=== PATIENT | female | born 1990 | race Caucasian/White ===

== ENCOUNTER 2018-12-23 14:48 | Emergency (ER) | payer BC, MEDICAID ==
[~2018-12-23] VITALS: Ht 165.1 cm; Wt 79.4 kg
--- NOTE | 2018-12-23 14:54 | NUR ---
BILLY LUNDY AT BEDSIDE FOR MSE.
[2018-12-23] MEDS ORDERED: IV NORMAL SALINE 1000 ML BAG IV ONE (15:15)
[2018-12-23 15:28] LABS: BASOPHILS % (AUTO) 0.4 % (0.0-2.0); EOSINOPHILS # (AUTO) 0.1 K/uL (0.0-0.7); EOSINOPHILS % (AUTO) 1.5 % (0.0-7.0); HEMATOCRIT 33.3 % (31.2-41.9); HEMOGLOBIN 11.2 g/dL (10.9-14.3); LYMPHOCYTES # (AUTO) 1.5 K/uL (20.0-40.0); MEAN CORPUSCULAR HEMOGLOBIN 26.9 uug (24.7-32.8); MEAN CORPUSCULAR HGB CONC 34 g/dL (32.3-35.6); MEAN CORPUSCULAR VOLUME 80.2 fL (75.5-95.3); MONOCYTES # (AUTO) 0.5 K/uL (2.0-10.0); MONOCYTES % (AUTO) 6.7 % (0.0-11.0); NEUTROPHILS # (AUTO) 5.5 K/uL (1.8-8.9); NEUTROPHILS % (AUTO) 71.4 % (38.5-71.5); PLATELET COUNT (AUTO) 253 K/uL (179-408); RED BLOOD CELL COUNT(AUTO) 4.16 MIL/uL (3.63-4.92); WHITE BLOOD COUNT (AUTO) 7.7 K/uL (3.8-11.8)
[2018-12-23 15:31] LABS: CREATININE 0.9 mg/dL (0.6-1.3); POTASSIUM 3.7 mmol/L (3.5-5.1)
[2018-12-23 15:37] LABS: BILIRUBIN,DIRECT 0.2 mg/dL (0.0-0.2); BILIRUBIN,TOTAL 0.7 mg/dL (0.2-1.0); TOTAL PROTEIN, SERUM 6.9 g/dL (6.4-8.2)
--- NOTE | 2018-12-23 16:44 | NUR ---
Patient discharged to home in stable conditon. Written and verbal after care instructions given. Patient verbalizes understanding of instructions. ALL BELONGINGS W/ PT. PT SELF-AMBULATED W/O DIFFICULTY. 18G IV ACCESS IN RAC REMOVED PRIOR TO D/C - INNER CANNULA INTACT.
[2018-12-23 16:45] VITALS: BP 106/60
== END 2018-12-23 16:48 | disposition home or self-care (01) ==
LOC: ER 14:48
DX: R19.7 Diarrhea, unspecified (principal)
CPT/HCPCS: 36415; 83690; 85025; A4663; J7030

== ENCOUNTER 2020-11-24 00:11 | Emergency (ER) | payer SELFPAY ==
[~2020-11-24] VITALS: Ht 157.5 cm; Wt 83.9 kg
--- NOTE | 2020-11-24 00:20 | NUR ---
Pt ambulated to ER with c/o fever, sore throat and dry cough x3 days. A/O x4, no SOB or labored breathing. Denies CP/pressure. Denies any GI/GI distress.
--- NOTE | 2020-11-24 00:25 | NUR ---
Anahi Cuenca at bedside, MSE in progress.
--- NOTE | 2020-11-24 00:44 | NUR ---
Patient discharged to home in stable condition. A/O x4, no SOB or labored beathing. Denies any pain/discomfort. Written and verbal after care instructions given. Patient verbalizes understanding of instructions. Stressed follow up or return to ER for worsening s/s. Steady gait.
[2020-11-24 00:45] VITALS: BP 123/89
== END 2020-11-24 00:45 | disposition home or self-care (01) ==
LOC: ER 00:13
DX: R50.9 Fever, unspecified (principal); R51.9 Headache, unspecified
CPT/HCPCS: A4663